=== PATIENT | male | born 1985 | race Caucasian/White ===

== ENCOUNTER 2018-10-16 23:10 | Emergency (ER) | payer OTHER ==
[2018-10-17 00:06] LABS: ABSOLUTE EOSINOPHILS # (AUTO) 0.1 10^3/uL (0.0-0.6); ABSOLUTE LYMPHOCYTES (AUTO) 2.5 10^3/uL (0.5-4.7); ABSOLUTE MONOCYTES (AUTO) 1.5 10^3/uL (0.1-1.4); ABSOLUTE NEUT (AUTO) 10.8 10^3/uL (1.7-8.2); BASOPHILS % (AUTO) 0.3 % (0-2); EOSINOPHILS % (AUTO) 0.9 % (0-6); HEMATOCRIT 48.4 % (37.9-51.0); HEMOGLOBIN 16.5 g/dL (13.5-17.0); LYMPHOCYTES % (AUTO) 16.7 % (13-45); MEAN CORPUSCULAR HEMOGLOBIN 30.4 pg (27.0-33.4); MEAN CORPUSCULAR HGB CONC 34.1 g/dL (32.0-36.0); MEAN CORPUSCULAR VOLUME 89 fl (80-97); MONOCYTES % (AUTO) 9.7 % (3-13); PLATELET COUNT 188 10^3/uL (150-450); RED BLOOD COUNT 5.43 10^6/uL (4.35-5.55); RED CELL DISTRIBUTION WIDTH 13.4 % (11.5-14.0); SEGMENTED NEUTROPHILS % (AUTO) 72.4 % (42-78); TOTAL CELLS COUNTED % (AUTO) 100 %; WHITE BLOOD COUNT 14.9 10^3/uL (4.0-10.5)
[2018-10-17 00:10] LABS: ALANINE AMINOTRANSFERASE 44 U/L (21-72); ALBUMIN 4.1 g/dL (3.5-5.0); ALKALINE PHOSPHATASE 77 U/L (38-126); ANION GAP 9 (5-19); ASPARTATE AMINO TRANSFERASE 26 U/L (17-59); BILIRUBIN,DIRECT 0.2 mg/dL (0.0-0.4); BILIRUBIN,TOTAL 0.3 mg/dL (0.2-1.3); BLOOD UREA NITROGEN 15 mg/dL (7-20); CALCIUM 9.9 mg/dL (8.4-10.2); CARBON DIOXIDE 25 mmol/L (22-30); CHLORIDE 108 mmol/L (98-107); GLUCOSE 107 mg/dL (75-110); LIPASE 67.3 U/L (23-300); POTASSIUM 4.1 mmol/L (3.6-5.0); SODIUM 141.8 mmol/L (137-145); TOTAL PROTEIN 6.9 g/dL (6.3-8.2)
[2018-10-17 00:49] LABS: APPEARANCE,URINE CLEAR; BILIRUBIN,URINE NEGATIVE (NEGATIVE); COLOR,URINE STRAW; GLUCOSE, URINE NEGATIVE (NEGATIVE); KETONES,URINE NEGATIVE (NEGATIVE); LEUKOCYTE ESTERASE,URINE NEGATIVE (NEGATIVE); NITRITE,URINE NEGATIVE (NEGATIVE); PROTEIN,URINE NEGATIVE (NEGATIVE); URINE SPECIFIC GRAVITY 1.004; UROBILINOGEN,URINE NEGATIVE mg/dL (<2.0)
[2018-10-17 00:55] LABS: ADD MANUAL MICROSCOPIC YES; RBC,URINE NONE SEEN /HPF; WBC,URINE NONE SEEN /HPF
[2018-10-17] MEDS ORDERED: OXYCODONE-ACETAMINOPHEN 5-325 MG TABLET PO ONE (00:58)
[2018-10-17] MEDS ORDERED: ONDANSETRON HCL INJ/PF 4 MG/2 ML SDV IV ONE ×2 (00:58→04:21)
[2018-10-17] MEDS ORDERED: NORMAL SALINE 1000 ML 1,000 ML IV ONE (00:58)
--- NOTE | 2018-10-17 01:13 | ER Document Report ---
ED Medical Screen (RME) - General Chief Complaint: Possible Kidney Stone Stated Complaint: KIDNEY PAIN Time Seen by Provider: 10/17/18 00:58 Notes: Patient is a 33-year-old male presents to the emergency department with a chief complaint of bilateral flank pain that started around 8 PM tonight. Patient states he is having urinary frequency. Patient reports chills. Patient denies fever. Patient states the bilateral flank pain is starting to radiate into his lower abdomen. Patient denies obvious blood in the urine. Patient states he h as had nausea without vomiting. TRAVEL OUTSIDE OF THE [place] IN LAST 30 DAYS: No - Related Data Allergies/Adverse Reactions: amoxicillin Allergy (Verified 10/17/18 00:44) Past Medical History - Social History Frequency of alcohol use: None Drug Abuse: None Renal/ Medical History: Reports: Hx Kidney Stones. Denies: Hx Peritoneal Dialysis Past Surgical History: Reports: Hx Orthopedic Surgery - left ankle repair Physical Exam - Vital signs Vitals: Temp Pulse Resp BP Pulse Ox 98.1 F 107 H 16 172/98 H 98 10/16/18 23:24 10/16/18 23:24 10/16/18 23:24 10/16/18 23:24 10/16/18 23:24 Interpretation: Hypertensive, Tachycardic - Abdominal Inspection: Normal Distension: No distension Bowel sounds: Normal Tenderness: Nontender Organomegaly: No organomegaly - Back Back: CVA tenderness - bilatera Course - Re-evaluation Re-evalutation: 10/17/18 01:12 I have greeted and performed a rapid initial assessment of this patient. A c omprehensive ED assessment and evaluation of the patient, analysis of test results and completion of the medical decision making process will be conducted by additional ED providers. - Vital Signs Vital signs: Temp Pulse Resp BP Pulse Ox 98.1 F 107 H 16 172/98 H 98 10/16/18 23:24 10/16/18 23:24 10/16/18 23:24 10/16/18 23:24 10/16/18 23:24 - Laboratory Result Diagrams: 10/16/18 23:21 10/16/18 23:21 Laboratory results interpreted by me: 10/16/18 10/16/18 23:21 23:21 WBC 14.9 H Absolute Neutrophils 10.8 H Absolute Monocytes 1.5 H Chloride 108 H Creatinine 1.53 H Est GFR (Non-Af Amer) 53 L
[2018-10-17] MEDS ORDERED: FENTANYL CITRATE INJ/PF 100 MCG/2 ML AMPUL IV ONE (04:21)
--- NOTE | 2018-10-17 05:58 | RADIOLOGY REPORT (SQ) ---
EXAM DESCRIPTION: CT ABDOMEN PELVIS WITHOUT IV CONTRAST COMPLETED DATE/TME: 10/17/2018 04:23 CLINICAL HISTORY: 33 years Male, bilateral flank pain Comparison: None. Technique: No contrast. Coronal and sagittal reformat. This exam was performed according to our departmental dose-optimization program, which includes automated exposure control, adjustment of the mA and/or kV according to patient size and/or use of iterative reconstruction technique.[facility]: Dose Right [facility]: CareDose [facility]: Dose Right [facility]: Teradose 4D [facility]: [employer] LIMITATIONS: None Findings: Old granulomatous disease. Hepatic steatosis. Bilateral perinephric fat stranding, nonspecific. Mild diffuse prominence of the urinary bladder wall. Likely benign 0.8 cm hyperdense cyst of the right renal upper pole not definitively characterized. No ascites. No pneumoperitoneum. No bowel obstruction. Normal appendix. No gross evidence of gallbladder inflammation or hepatobiliary obstruction. No hydronephrosis or hydroureter. No renal/ureteral stone. No evidence of abdominal aortic aneurysm. Unenhanced lower thorax, abdominopelvic structures, and musculoskeleton appear otherwise grossly unremarkable. Impression: Bilateral perinephric fat stranding, nonspecific. Mild diffuse prominence of the urinary bladder wall. Differential diagnosis includes infection of the urinary tract and/or pyelonephritis.
--- NOTE | 2018-10-17 06:05 | ER Document Report ---
ED General - General Chief Complaint: Possible Kidney Stone Stated Complaint: KIDNEY PAIN Time Seen by Provider: 10/17/18 00:58 TRAVEL OUTSIDE OF THE [place] IN LAST 30 DAYS: No - HPI Notes: Patient is a 33-year-old male who presents to the emergency department for evaluation of bilateral flank pain. He states that started about 8 PM tonight. The right side seems to be more painful to the left. He states occasionally the pain radiates around to his groin. He has had some nausea but no associated med sis. He denies any hematuria, states he has felt some urinary frequency. He has had some chills but no elsi fevers. He does have a history of kidney stones, as well as significant DJD and spinal stenosis. He denies any bowel or bladder incontinence, no saddle anesthesia. - Related Data Allergies/Adverse Reactions: amoxicillin Allergy (Verified 10/17/18 00:44) Past Medical History - General Information source: Patient - Social History Smoking Status: Current Every Day Smoker Frequency of alcohol use: None Drug Abuse: None Family History: Reviewed & Not Pertinent Patient has suicidal ideation: No Patient has homicidal ideation: No Renal/ Medical History: Reports: Hx Kidney Stones. Denies: Hx Peritoneal Dialysis Musculoskeletal Medical History: Reports Hx Arthritis, Reports Other - Spinal stenosis lumbar and cervical spine Past Surgical History: Reports: Hx Orthopedic Surgery - left ankle repair Review of Systems - Review of Systems Constitutional: See HPI EENT: No symptoms reported Cardiovascular: No symptoms reported Respiratory: No symptoms reported Gastrointestinal: No symptoms reported Genitourinary: See HPI Musculoskeletal: See HPI Skin: No symptoms reported Neurological/Psychological: No symptoms reported Physical Exam - Vital signs Vitals: Temp Pulse Resp BP Pulse Ox 98.1 F 107 H 16 172/98 H 98 10/16/18 23:24 10/16/18 23:24 10/16/18 23:24 10/16/18 23:24 10/16/18 23:24 - Notes Notes: Vital signs reviewed, please refer to chart. Head is normocephalic, atraumatic. Pupils equal round, reactive to light. Neck is supple without meningismus. Heart is regular rate and rhythm. Lungs are clear to auscultation bilaterally. Abdomen is soft, nontender, normoactive bowel sounds throughout. Semination of the spine is no midline tenderness or step-off. There is paraspinal musculature tenderness noted throughout the lower thoracic and lumbar spine, right greater than left, with associated spasm. No costovertebral angle tenderness is appreciated. Extremities without cyanosis, clubbing. Posterior calves are non tender. Peripheral pulses are equal. Skin is warm and dry. Patient is awake, alert, neurological exam is nonfocal. Course - Re-evaluation Re-evalutation: 10/17/18 06:01 Patient presents emergency department for evaluation. Laboratory investigations were interpreted. He had no blood or white blood cells in his urine. He was s till concerned about the significance of his pain, was concerned about potential kidney stone. CT scan of the abdomen pelvis was performed. My preliminary read yields no signs of ureteral calcification, no hydronephrosis. It was noted by radiology, however, that he has perinephric stranding and other findings concerning for potential infection. His urine is entirely unremarkable. He does stay well-hydrated though. I will go ahead and send this urine for culture. Given his symptoms of chills, as well as the CT findings, I am inclined to treat him for potential infection. I will go ahead and give him a 7-day course of Cipro. He is given his first dose here. I explained to the patient that I was unsure as to the etiology of the stranding, but would be inclined to treat him for infection nonetheless, particularly given his CT findings and leukocytosis. He was amenable to this plan. I will go ahead and treat him symptomatically for back pain, nausea. He is to follow-up with [facility], return to the ED with worsening or new concerning symptoms. - Vital Signs Vital signs: Temp Pulse Resp BP Pulse Ox 98.1 F 107 H 16 172/98 H 98 10/16/18 23:24 10/16/18 23:24 10/16/18 23:24 10/16/18 23:24 10/16/18 23:24 - Laboratory Result Diagrams: 10/16/18 23:21 10/16/18 23:21 Laboratory results interpreted by me: 10/16/18 10/16/18 23:21 23:21 WBC 14.9 H Absolute Neutrophils 10.8 H Absolute Monocytes 1.5 H Chloride 108 H Creatinine 1.53 H Est GFR (Non-Af Amer) 53 L - Diagnostic Test Radiology reviewed: Reports reviewed - Perinephric stranding, findings concerning for UTI/pyelonephritis Discharge - Discharge Clinical Impression: Bilateral flank pain, Nausea, Abnormal renal function, Urinary tract infection Condition: Stable Disposition: HOME, SELF-CARE Instructions: Antinausea Medication ([facility]), Flank Pain ([facility]) Additional Instructions: You are being treated for potential infection with Cipro. Please take all of this as directed until gone, starting this evening. Your kidney function was mildly abnormal. Avoid [id number] NSAIDs such as ibuprofen, and stay well-hydrated. Follow-up with primary care provider regarding this in 1 to 2 weeks. Follow-up with neurosurgery as scheduled. Return the emergency department with worsening or new concerning symptoms. Prescriptions: RX: Ciprofloxacin HCl [Cipro 500 mg Tablet] 500 mg PO BID #13 tablet Cyclobenzaprine HCl [Flexeril 10 mg Tablet] 10 mg PO BID PRN #10 tablet PRN Reason: For Pain Scale 4-5 Hydrocodone/Acetaminophen [Perry 5-325 Tablet] 1 each PO Q6H PRN #10 tablet PRN Reason: Ondansetron [Zofran Odt 4 mg Tablet] 1 tab PO Q4H PRN #15 tab.rapdis PRN Reason: For Nausea/Vomiting
[2018-10-17] MEDS ORDERED: CIPROFLOXACIN HCL 500 MG TABLET PO ONE (06:18)
[2018-10-17 06:45] VITALS: BP 152/79
== END 2018-10-17 06:46 | disposition home or self-care (01) ==
LOC: ER 23:10
DX: N39.0 Urinary tract infection, site not specified (principal); R94.4 Abnormal results of kidney function studies; R10.9 Unspecified abdominal pain; R11.0 Nausea; R35.0 Frequency of micturition; R68.83 Chills (without fever); M62.830 Muscle spasm of back; F17.200 Nicotine dependence, unspecified, uncomplicated; Z87.442 Personal history of urinary calculi; Z88.0 Allergy status to penicillin
CPT/HCPCS: 96376; 99284; 96361; 96374; 96375; 36415; 83690; 85025; 80053; 81001; 74176; J3010; J2405; J7030